=== PATIENT | male | born 1965 | race Caucasian/White ===

== ENCOUNTER 2024-05-19 08:31 | Outpatient (AMB) | payer OTHER, SELFPAY ==
--- NOTE | 2024-05-19 08:49 | A.OFFVIS_ITS ---
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 Pt states he had a TKA in 2021 by an orthopedic surgeon in [place] and since then he states it has not felt right. Pt states he has constant numbness in his right foot. Pt states when he bends his leg it is very painful. Pt denies any injury after his TKA. Pt states he tried PT again about 3 months ago but he states it still didnt help much. He has been seen for a ?disc problem? in his low back by Dr. Sandoval Henley. He has not had an injection in his low back. Allergies No Known Allergies Allergy (Verified 05/19/24 08:54) Medication List - Last Reconciled 05/19/24 by Clemente Ernandez MD apixaban (Eliquis) 5 mg PO BID indapamide 2.5 mg PO DAILY lisinopril 40 mg PO DAILY COUNTS INCLUDE 234 BEDS AT THE [facility] Surgical History (Updated 05/19/24 @ 08:57 by Mai Ballesteros [facility]) History of total knee arthroplasty (~2021) Physical Exam Const Other: Well-nourished well-developed very friendly male awake alert and oriented x3 in no acute distress Extrem Other: Right knee examination shows that the surgical incision is well healed, no erythema, full active extension and flexion to 115 degrees, his patella tracks well Results Reviewed Results Reviewed: X-rays of the patient's right knee taken today show a total knee arthroplasty in good position with no signs of loosening, no acute bony abnormalities Assessment & Plan Assessment & Plan (1) Right knee pain: Code(s): M25.561 - Pain in right knee Category: Medical Plan Mr. Garnica presents with continued pain in his right knee after undergoing right total knee replacement surgery by [facility] in 2021. I had a lengthy discussion with the patient regarding the treatment options. Some of his symptoms may be radiating from his lumbar spine pathology. The patient may be a candidate for a nerve block procedure to help with his discomfort. Thus, I will arrange for him to have a consultation with Dr. Quintana here in our pain management department. The patient will also follow up with Dr. Henley for possible lumbar spine cortisone injection. I will see the patient back following these appointments to further discuss his treatment options. Feel free to call me at any time should questions regarding his orthopedic management arise. Thank you very much for asking me to see this very friendly gentleman. I spent 22 minutes in reviewing the patient's records and imaging studies, seeing the patient and documenting in the medical record. Orders: Orders XR knee RT 3V Today M25.561 - Pain in right knee Referrals Pain Management Referral M25.561 - Pain in right knee Coding Level of Care Code New Pt Level 3 (21805) Diagnoses Right knee pain M25.561
== END 2024-05-19 09:14 | disposition home or self-care (01) ==
PROVIDERS: PCP Internal Medicine; Visit Provider Orthopaedic Surgery
DX: M25.561 Pain in right knee (principal); Z96.651 Presence of right artificial knee joint
CPT/HCPCS: 99203

== ENCOUNTER 2024-05-19 09:28 | Outpatient (REF) | payer OTHER, SELFPAY ==
--- NOTE | ~2024-05-19 | XR_ITS ---
EXAMINATION: XR KNEE, RIGHT CLINICAL INFORMATION: Right knee pain COMPARISON: None available. TECHNIQUE: Three views of the right knee. FINDINGS: The total knee arthroplasty components are in the usual position and alignment without evidence of loosening or fracture. There is a joint effusion. Soft tissue density overlying Hoffa's fat pad is nonspecific and may represent joint fluid. XR/XR knee RT 3V IMPRESSION: Total knee arthroplasty without evidence of complication. Joint effusion. Soft tissue density overlying Hoffa's fat pad is nonspecific and may represent joint fluid.
== END 2024-05-19 09:29 | disposition home or self-care (01) ==
LOC: HO.HOSX 09:28
PROVIDERS: Visit Provider Orthopaedic Surgery
DX: M25.561 Pain in right knee (principal)
CPT/HCPCS: 73562

== ENCOUNTER 2024-06-15 07:50 | Outpatient (AMB) | payer OTHER, SELFPAY ==
[2024-06-15 07:52] VITALS: BP 138/68; PULSE 66; RESP 14; O2SAT 96; BMI 30.8
--- NOTE | 2024-06-15 07:52 | MHC.OFFVIS ---
Vital Signs 06/15/24 07:52 Height 5 ft 10 in Weight 215 lb BMI 30.8 BP 138/68 Blood Pressure Location Lt brachial Position Sitting Respiration 14 Pulse 66 Pulse Source Pulse Oximeter Pulse Oximetry (%) 96 Oxygen Delivery Method Room Air Intake Visit Reasons: Right Knee Pain Allergies No Known Allergies Allergy (Verified 06/15/24 07:54) Medication List - Last Reconciled 06/15/24 by Ya Ramon LPN apixaban (Eliquis) 5 mg PO BID indapamide 2.5 mg PO DAILY lisinopril 40 mg PO DAILY omeprazole mg PO HPI HPI Right Knee Pain: Details: 58-year-old male who presents today to the office for an evaluation of right knee pain. He complains of right knee pain. He had right total knee replacement surgery by [facility] in 2021. He has constant numbness in his right foot. He reports warmth and swelling with tenderness to touch. He reports aggravation of the pain when he bends his leg. He denies any injury after his TKA. He tried physical therapy again about three months ago without any relief. He has been seen for a ?disc problem? in his low back by Dr. Sandoval Henley. He has not had an injection in his low back. He is currently on Eliquis for blood clots in his leg. He had pain in his back, which radiates down to his legs, and went to the emergency room in June 2023. He had an imaging, which showed blood clots in his leg, and was started on Eliquis. He has tried compression stockings in the past. [facility] Medical History (Updated 06/15/24 @ 09:33 by Michael Hardin) DVT (deep venous thrombosis) Venous insufficiency Right knee pain Hypertension Surgical History (Updated 05/19/24 @ 08:57 by Mai Ballesteros CMA) History of total knee arthroplasty (~2021) Review of Systems Const All systems reviewed & are unremarkable except as noted in HPI and below Physical Exam Vital Signs: Last Vital Signs Pulse 66 06/15/24 07:52 Resp 14 06/15/24 07:52 BP 138/68 06/15/24 07:52 Pulse Ox 96 06/15/24 07:52 Oxygen Delivery Method Room Air 06/15/24 07:52 BMI result Body Mass Index 30.8 General: Appears afebrile. Alert and oriented. Mood and affect appropriate. Follows and participates in conversation appropriately. Respiratory effort is unlabored. Able to transition from sit to stand unassisted. Ambulates with bilaterally normal heel strike and toe off. A well-healed scar in the midline region of the right knee. No particular tenderness on palpation. The knee is warm to touch compared to the left side. It is swollen on inspection. 1+ edema on the right leg up to the mid-[place] region. Results Reviewed Results Reviewed: 05/19/24: XR KNEE, RIGHT FINDINGS: The total knee arthroplasty components are in the usual position and alignment without evidence of loosening or fracture. There is a joint effusion. Soft tissue density overlying Hoffa's fat pad is nonspecific and may represent joint fluid. IMPRESSION: Total knee arthroplasty without evidence of complication. Joint effusion. Soft tissue density overlying Hoffa's fat pad is nonspecific and may represent joint fluid. Assessment & Plan Assessment & Plan (1) Right knee pain: Code(s): M25.561 - Pain in right knee Category: Medical (2) Venous insufficiency: Code(s): I87.2 - Venous insufficiency (chronic) (peripheral) Category: Medical Plan 58-year-old male with leg swelling and knee pain worse since his knee replacement surgery. His leg swelling appears to be secondary to a combination of post-arthroplasty swelling as well as venous insufficiency, which he has had for a long time. Past history is notable for a DVT for which he is on Eliquis. Ordered an US of the leg (venous reflux study) for him to see if he would be a candidate for a kind of venous ablation therapy to help with the venous reflux component in the right knee pain. I also discussed temporary peripheral nerve stimulator vs. lumbar sympathetic blocks vs. permanent peripheral nerve stimulator devices as a possible treatment option. He is willing to proceed given significant discomfort that is affecting his quality of life and ADLs. We will proceed with the right saphenous nerve temporary stimulator placement. Discussed the risks and benefits of the procedure with the patient in detail. All questions were answered. The patient is on board with the plan. A device brochure was provided to the patient. Informed the patient that insurance approval is required. We will file a PA for approval and keep him updated. If this is not helpful, we can consider permanent peripheral nerve stimulator or lumbar sympathetic blocks in the future. Justification for interventional therapy: ? Patient with average pain > 6/10 ? Patient has exhausted conservative therapy ? Patient unable to tolerate physical therapy due to pain. . Patient has a good understanding of their pain condition and has appropriate mental and social support Scribed for Dr. Quintana by Michael Hardin, medical fee clerk, on 06/15/2024. I, Dr. Quintana, have personally reviewed and agree with the information entered by the scribe. Orders: Orders US venous duplex [facility] 06/15/24 I87.2 - Venous insufficiency (chronic) (peripheral) Coding Level of Care Code New Pt Level 4 (14524) Diagnoses Right knee pain M25.561 Venous insufficiency I87.2
== END 2024-06-15 09:01 | disposition home or self-care (01) ==
LOC: HO.PMC 07:50
PROVIDERS: PCP Internal Medicine; Visit Provider Internal Medicine
DX: M25.561 Pain in right knee (principal); I87.2 Venous insufficiency (chronic) (peripheral)
CPT/HCPCS: 99204

== ENCOUNTER → 2024-06-15 07:50 | Outpatient (BNVA) | payer OTHER, SELFPAY | PROVIDERS: PCP Internal Medicine; Visit Provider Internal Medicine ==

== ENCOUNTER 2024-07-08 09:09 | Outpatient (AMB) | payer OTHER, SELFPAY ==
[2024-07-08 09:19] VITALS: BP 138/74; PULSE 63; RESP 14; O2SAT 94; BMI 30.8
--- NOTE | 2024-07-08 09:19 | A.OFFVIS_ITS ---
Vital Signs 07/08/24 09:19 Height 5 ft 10 in Weight 215 lb BMI 30.8 BP 138/74 Blood Pressure Location Lt brachial Position Sitting Respiration 14 Pulse 63 Pulse Source Pulse Oximeter Pulse Oximetry (%) 94 Oxygen Delivery Method Room Air Intake Visit Reasons: left knee inj Allergies No Known Allergies Allergy (Verified 07/08/24 09:20) Medication List - Last Reconciled 07/08/24 by Ya Ramon LPN apixaban (Eliquis) 5 mg PO BID indapamide 2.5 mg PO DAILY lisinopril 40 mg PO DAILY omeprazole mg PO HPI HPI left knee inj: Details: 58-year-old male who presents today to the office for left knee aspiration. He is interested in receiving a cortisone shot to the left knee. Denies any recent cough, cold, infection, fever or other significant changes in medical history since last office visit. [facility] Medical History (Updated 07/14/24 @ 12:[address] Quintana MD) DVT (deep venous thrombosis) Venous insufficiency Right knee pain Hypertension Surgical History (Updated 05/19/24 @ 08:57 by Mai Ballesteros CMA) History of total knee arthroplasty (~2021) Physical Exam Vital Signs: Last Vital Signs Pulse 63 07/08/24 09:19 Resp 14 07/08/24 09:19 BP 138/74 07/08/24 09:19 Pulse Ox 94 07/08/24 09:19 Oxygen Delivery Method Room Air 07/08/24 09:19 BMI result Body Mass Index 30.8 General: Appears afebrile. Alert and oriented. Mood and affect appropriate. Follows and participates in conversation appropriately. Respiratory effort is unlabored. Able to transition from sit to stand unassisted. Ambulates with bilaterally normal heel strike and toe off. Office Procedures Joint Injection/Aspiration Joint Injection/Aspiration Details: Left knee aspiration and injection, ultrasound-guided After obtaining written consent, pre-procedure blood pressure and heart rate were stable and recorded in the nursing record. The patient was placed in the supine position and the patient identification and site was confirmed. The target area was widely prepped with chloraprep, allowed to dry. Ultrasound guidance was utilized to visualize the?fluid collection at the suprapatellar bursa of the left knee capsule. An 18-gauge needle was advanced under ultrasound guidance to the suprapatellar bursa. 25 mL of clear synovial fluid was aspirated. Following aspiration, 10 ml of triamcinolone 40 mg mixed with normal saline was injected on the left side at the suprapatellar bursa for intra- articular spread. The needles were removed, skin cleansed and a sterile bandage was applied. The patient tolerated the procedure well and no complications were encountered. Following the procedure the patient's vital signs and knee strength were stable. The patient was discharged home in good condition with post- procedural instructions. Time Out: Immediately prior to the procedure, the following was verbally confirmed that there is a signed consent form and that the correct patient, planned procedure, site and side are consistent with documentation and that necessary equipment and/or blood products are available prior to the start of the case. An ultrasound image of the injection was taken and stored in the permanent record. Coding - Large joint Procedure code (CPT) selection complete Assessment & Plan Assessment & Plan (1) Left knee pain: Code(s): M25.562 - Pain in left knee Category: Medical Plan Patient is status post left knee aspiration and injection with triamcinolone. Patient tolerated procedure well and was discharged home in stable condition with discharge instructions. All questions were answered. We will follow-up in two weeks via telephone or in clinic to assess response to therapy. A follow-up appointment was made during today's visit. Scribed for Dr. Quintana by Anat senior medical billing specialist, on 07/08/2024. I, Dr. Quintana, have personally reviewed and agree with the information entered by the scribe. Coding Level of Care Code Est Pt Level 3 (15457) Diagnoses Left knee pain M25.562 CPT Codes Coding - 03890 Large joint: 95729 - Large joint ([id number])
== END 2024-07-08 09:46 | disposition home or self-care (01) ==
PROVIDERS: PCP Internal Medicine; Visit Provider Internal Medicine
DX: M25.562 Pain in left knee (principal)
CPT/HCPCS: 20611

== ENCOUNTER → 2024-07-08 09:09 | Outpatient (BNVA) | payer OTHER, SELFPAY | PROVIDERS: PCP Internal Medicine; Visit Provider Internal Medicine | DX: M25.562 Pain in left knee (principal) | CPT/HCPCS: 20611; J2795; J3301 ==

== ENCOUNTER 2024-07-14 08:06 | Outpatient (REF) | payer OTHER, SELFPAY ==
--- NOTE | ~2024-07-14 | US_ITS ---
EXAMINATION: US LOWER EXTREMITY VENOUS (REFLUX EXAM), BILATERAL CLINICAL INDICATION: Chronic venous insufficiency with lower extremity varicose veins and inflammation COMPARISON: None. TECHNIQUE: Color flow triplex imaging and compression Doppler was performed to evaluate both the deep and the superficial systems bilaterally. To evaluate the superficial system, the examination was performed in the upright position. Color-flow Doppler ultrasound and compression ultrasound were utilized. In addition, maneuvers were utilized to demonstrate reflux. FINDINGS: 1. DEEP VENOUS ULTRASOUND OF THE RIGHT LOWER EXTREMITY: Common Femoral Vein: Compressible, normal respiratory variation and augmented flow. Femoral Vein: Compressible, normal color flow and augmentation. Popliteal Vein: Compressible, normal augmentation. Deep Reflux: Deep venous reflux seen within the common femoral vein, superficial femoral vein and popliteal vein ranging from 1512 ms to 2328 ms There is no evidence of a Guillen's cyst. 2. SUPERFICIAL ULTRASOUND WITH DOPPLER OF RIGHT LOWER EXTREMITY: GREAT SAPHENOUS VEIN: Saphenofemoral Junction: 1.1 cm; Reflux: 884 ms Proximal Thigh: 0.8 cm; Reflux: 2396 ms Mid Thigh: 0.6 cm; Reflux: 0 ms Above Knee: 0.6 cm; Reflux: 0 ms At Knee: 0.5 cm; Reflux: 0 ms Below Knee: 0.5 cm; Reflux: 0 ms Mid Calf: 0.4 cm; Reflux: 0 ms Ankle: 0.3 cm; Reflux: 2264 ms DUPLICATED MEDIAL GREAT SAPHENOUS VEIN: Diameter: 0.2 cm Reflux: None DUPLICATED LATERAL GREAT SAPHENOUS VEIN: Diameter: None imaged Reflux: NA SMALL SAPHENOUS VEIN: Saphenopopliteal Junction: 0.2 cm; Reflux: 0 ms Proximal: 0.2 cm; Reflux: 0 ms Distal: 0.1 cm; Reflux: 0 ms VEIN OF GIACOMINI: Size: NA Reflux: NA PERFORATORS: Location: Midcalf Size: 0.6 cm Reflux: 1312 ms VARICOSITIES: Location: Medial distal thigh, knee and throughout the calf off the great saphenous vein Size: 0.3 to 0.7 cm Reflux: 1324 - 1848 ms 3. DEEP VENOUS ULTRASOUND OF THE LEFT LOWER EXTREMITY: Common Femoral Vein: Compressible, normal respiratory variation and augmented flow. Femoral Vein: Compressible, normal color flow and augmentation. Popliteal Vein: Compressible, normal augmentation. Deep Reflux: Deep venous reflux in the popliteal vein measuring 1512 ms There is no evidence of a Guillen's cyst. 4. SUPERFICIAL ULTRASOUND WITH DOPPLER OF LEFT LOWER EXTREMITY: GREAT SAPHENOUS VEIN: Saphenofemoral Junction: 0.8 cm; Reflux: 0 ms Proximal Thigh: 0.3 cm; Reflux: 2856 ms Mid Thigh: 0.3 cm; Reflux: 2560 ms Above Knee: 0.3 cm; Reflux: 1356 ms At Knee: 0.4 cm; Reflux: 0 ms Below Knee: 0.3 cm; Reflux: 0 ms Mid Calf: 0.3 cm; Reflux: 2540 ms Ankle: 0.2 cm; Reflux: 2428 ms DUPLICATED MEDIAL GREAT SAPHENOUS VEIN: Diameter: None imaged Reflux: NA DUPLICATED LATERAL GREAT SAPHENOUS VEIN: Diameter: 0.2 cm Reflux: None SMALL SAPHENOUS VEIN: Saphenopopliteal Junction: 0.1 cm; Reflux: 0 ms Proximal: 0.1 cm; Reflux: 0 ms Distal: 0.1 cm; Reflux: 0 ms VEIN OF GIACOMINI: Size: NA Reflux: NA PERFORATORS: Location: None significant Size: NA Reflux: NA VARICOSITIES: Location: Proximal thigh, knee and mid calf off the great saphenous vein Size: 0.2 to 0.5 cm Reflux: Ranging from 748 ms to 2440 ms US/US venous duplex LE BI IMPRESSION: 1. Right: Significant venous insufficiency and reflux within the great saphenous vein with associated varicosities as described above. 2. Left: Significant venous insufficiency and reflux within the great saphenous vein with associated varicosities as described above. 3. Deep venous reflux in the right lower extremity as described above. Deep venous reflux in the left lower extremity as described above. Electronically signed by: Trenton Yates MD 07/17/2024 02:18 PM EDT
== END 2024-07-14 08:07 | disposition home or self-care (01) ==
LOC: HO.US 08:06
PROVIDERS: PCP Internal Medicine; Visit Provider Internal Medicine
DX: I87.2 Venous insufficiency (chronic) (peripheral) (principal)
CPT/HCPCS: 93970

== ENCOUNTER 2024-08-21 09:10 | Outpatient (AMB) | payer OTHER, SELFPAY ==
--- NOTE | 2024-08-21 09:02 | A.OFFVIS_ITS ---
Intake Visit Reasons: Ultra Sound Allergies No Known Allergies Allergy (Verified 07/08/24 09:20) HPI HPI Ultra Sound: Details: 59-year-old male who presents via tele-visit for review of the ultrasound result. The patient reports resolution of his knee pain following the knee injection. He has some soreness and stiffness in his right knee when climbing stairs. He states that his left knee is pain is stable. He states that his pain is more localized to the knee region. He states that his leg pain was secondary to the back pain. He reports swelling in his leg. The PA for the stimulator device was denied by the insurance company. He has not tried TENS units in the past. He has a scheduled appointment with vascular surgeon on 11/03/2024. Past procedures 07/08/24: Left knee aspiration and injection, ultrasound-guided: 100 % relief. [facility] Medical History (Updated 07/14/24 @ 12:[address] Quintana MD) DVT (deep venous thrombosis) Venous insufficiency Right knee pain Hypertension Surgical History (Updated 05/19/24 @ 08:57 by Mai Ballesteros CMA) History of total knee arthroplasty (~2021) Review of Systems Const All systems reviewed & are unremarkable except as noted in HPI and below Telehealth Telehealth Telehealth Platform: [employer] Location of provider rendering services: practice address Location of patient: address on file Patient Identification confirmed using: Name, : Yes Telehealth method: video Patient verbally consented to treatment: Yes Patient verbally consented to billing insurance company: Yes Patient informed of any privacy concerns related to visit: Yes Minutes spent on Phone/Video with Pt.: 11 Results Reviewed Results Reviewed: 07/14/24: US LOWER EXTREMITY VENOUS (REFLUX EXAM), BILATERAL. FINDINGS: 1. DEEP VENOUS ULTRASOUND OF THE RIGHT LOWER EXTREMITY: Common Femoral Vein: Compressible, normal respiratory variation and augmented flow. Femoral Vein: Compressible, normal color flow and augmentation. Popliteal Vein: Compressible, normal augmentation. Deep Reflux: Deep venous reflux seen within the common femoral vein, superficial femoral vein and popliteal vein ranging from 1512 ms to 2328 ms There is no evidence of a Guillen's cyst. 2. SUPERFICIAL ULTRASOUND WITH DOPPLER OF RIGHT LOWER EXTREMITY: GREAT SAPHENOUS VEIN: Saphenofemoral Junction: 1.1 cm; Reflux: 884 ms Proximal Thigh: 0.8 cm; Reflux: 2396 ms Mid Thigh: 0.6 cm; Reflux: 0 ms Above Knee: 0.6 cm; Reflux: 0 ms At Knee: 0.5 cm; Reflux: 0 ms Below Knee: 0.5 cm; Reflux: 0 ms Mid Calf: 0.4 cm; Reflux: 0 ms Ankle: 0.3 cm; Reflux: 2264 ms DUPLICATED MEDIAL GREAT SAPHENOUS VEIN: Diameter: 0.2 cm Reflux: None DUPLICATED LATERAL GREAT SAPHENOUS VEIN: Diameter: None imaged Reflux: NA SMALL SAPHENOUS VEIN: Saphenopopliteal Junction: 0.2 cm; Reflux: 0 ms Proximal: 0.2 cm; Reflux: 0 ms Distal: 0.1 cm; Reflux: 0 ms VEIN OF GIACOMINI: Size: NA Reflux: NA PERFORATORS: Location: [place]calf Size: 0.6 cm Reflux: 1312 ms VARICOSITIES: Location: Medial distal thigh, knee and throughout the calf off the great saphenous vein Size: 0.3 to 0.7 cm Reflux: 1324 - 1848 ms 3. DEEP VENOUS ULTRASOUND OF THE LEFT LOWER EXTREMITY: Common Femoral Vein: Compressible, normal respiratory variation and augmented flow. Femoral Vein: Compressible, normal color flow and augmentation. Popliteal Vein: Compressible, normal augmentation. Deep Reflux: Deep venous reflux in the popliteal vein measuring 1512 ms There is no evidence of a Guillen's cyst. 4. SUPERFICIAL ULTRASOUND WITH DOPPLER OF LEFT LOWER EXTREMITY: GREAT SAPHENOUS VEIN: Saphenofemoral Junction: 0.8 cm; Reflux: 0 ms Proximal Thigh: 0.3 cm; Reflux: 2856 ms Mid Thigh: 0.3 cm; Reflux: 2560 ms Above Knee: 0.3 cm; Reflux: 1356 ms At Knee: 0.4 cm; Reflux: 0 ms Below Knee: 0.3 cm; Reflux: 0 ms Mid Calf: 0.3 cm; Reflux: 2540 ms Ankle: 0.2 cm; Reflux: 2428 ms DUPLICATED MEDIAL GREAT SAPHENOUS VEIN: Diameter: None imaged Reflux: NA DUPLICATED LATERAL GREAT SAPHENOUS VEIN: Diameter: 0.2 cm Reflux: None SMALL SAPHENOUS VEIN: Saphenopopliteal Junction: 0.1 cm; Reflux: 0 ms Proximal: 0.1 cm; Reflux: 0 ms Distal: 0.1 cm; Reflux: 0 ms VEIN OF GIACOMINI: Size: NA Reflux: NA PERFORATORS: Location: None significant Size: NA Reflux: NA VARICOSITIES: Location: Proximal thigh, knee and mid calf off the great saphenous vein Size: 0.2 to 0.5 cm Reflux: Ranging from 748 ms to 2440 ms IMPRESSION: 1. Right: Significant venous insufficiency and reflux within the great saphenous vein with associated varicosities as described above. 2. Left: Significant venous insufficiency and reflux within the great saphenous vein with associated varicosities as described above. 3. Deep venous reflux in the right lower extremity as described above. Deep venous reflux in the left lower extremity as described above. Assessment & Plan Assessment & Plan (1) Left knee pain: Code(s): M25.562 - Pain in left knee Category: Medical (2) Venous insufficiency: Code(s): I87.2 - Venous insufficiency (chronic) (peripheral) Category: Medical Plan Unfortunately, our request for PNS devices for the right knee pain was denied. So, I recommended he try TENS units and see if that makes a difference. I also encouraged him to follow up with vascular surgery to see if addressing his venous insufficiency would help with his right leg pain. His left knee is doing well at this time, and he will follow up as needed for that. Scribed for Dr. Quintana by Michael Hardin, medical insurance claims processor, on 08/21/2024. I, Dr. Quintana, have personally reviewed and agree with the information entered by the scribe. Coding Level of Care Code Tele Est Pt Level 3 (95357) Diagnoses Left knee pain M25.562 Venous insufficiency I87.2
== END 2024-08-21 09:11 | disposition home or self-care (01) ==
LOC: HO.PMC 09:10
PROVIDERS: PCP Internal Medicine; Visit Provider Internal Medicine
DX: M25.562 Pain in left knee (principal); I87.2 Venous insufficiency (chronic) (peripheral)
CPT/HCPCS: 99213

== ENCOUNTER → 2024-08-21 09:10 | Outpatient (BNVA) | payer OTHER, SELFPAY | PROVIDERS: PCP Internal Medicine; Visit Provider Internal Medicine ==

== ENCOUNTER 2024-11-03 15:09 | Outpatient (AMB) | payer OTHER, SELFPAY ==
--- OUTSIDE RECORDS SUMMARY | 2024-11-03 15:11 | XMS_ITS | Continuity of Care Document ---
Author Organization [facility] Address [address] [place] [address]- Care Team Providers Care Certified Welder Name Role Phone Josr Medrano MD Primary Care Physician En[place] [facility] [place](s): 10/19/24 - 10/26/24 [facility] [address] [place], [place] [address] Encounter Diagnosis Deep vein thrombosis (DVT) of right lower extremity(Discharge Diagnosis) - 10/19/24 History of total right knee replacement(Discharge Diagnosis) - 10/19/24 Hypercoagulable state, primary(Discharge Diagnosis) - 10/19/24 Serous cystadenoma(Discharge Diagnosis) - 10/19/24 Attending Physician: Josr Medrano MD Encounter Type: Office Visit Allergies, Adverse Reactions, Alerts No Known Allergies Immunizations Given and Recorded Vaccine Date Status Refusal Reason influenza virus vaccine, inactivated 09/04/24 Javier rded influenza virus vaccine, inactivated 10/08/23 Give n influenza virus vaccine, inactivated 1 09/21/22 Gi kobi influenza virus vaccine, inactivated 2 09/18/21 Gi kobi influenza virus vaccine, inactivated 08/28/20 Javier rded influenza virus vaccine, inactivated 3 08/27/19 Gi kobi influenza virus vaccine, inactivated 08/20/18 Give n influenza virus vaccine, inactivated 4 08/15/17 Gi kobi influenza virus vaccine, inactivated 5 09/06/10 Gi kobi SARS-CoV-2(COVID-19)mRNA-LNP vac([id number]) 08/21/24 Recorded SARS-CoV-2 mRNA ([id number]) vax 09/21/23 Recorded SARS-CoV-2 mRNA ([id number]-nrbby) vax 10/27/22 Recorded Zoster Vaccine Live 6 12/31/22 Recorded Zoster Vaccine Live 10/27/22 Recorded SARS-CoV-2 (COVID-19) mRNA-1273 vaccine 10/13/21 R ecorded SARS-CoV-2 (COVID-19) mRNA-1273 vaccine 12/30/20 R ecorded SARS-CoV-2 (COVID-19) mRNA-1273 vaccine 12/02/20 R ecorded tetanus/diphtheria/pertussis, acel(Tdap) 06/25/13 Given tetanus-diphtheria toxoids (Td) 02/08/04 Given 1Result Comment: [id number] given w/out incident 2Result Comment: [id number] 3Result Comment: [id number] 4Result Comment: [08/15/2017] [facility] [id number] 5Admin Note: in [place] 6Result Comment: [facility] Medications acetaminophen 325 mg oral tablet 650 mg, By Mouth, Every 6 hours, may take OTC not to exceed 4000 mg/day, Refills 0, Maintenance, 08/24/22 2:45:00 PM EDT, Partial fill upon patient request if the prescription is for a schedule II opioid drug. Start Date: 08/24/22 Status: Ordered Repeat number: 1 Amoxicillin 500 mg, By Mouth, Maintenance, given 1 hour prior to the procedure, 09/01/23 11:47:00 PM EDT Start Date: 09/01/23 Status: Ordered Repeat number: 1 Eliquis 5 mg oral tablet 1 tablet, By Mouth, 2 times a day, # 60 tablet, 11 Refills, Maintenance, 01/17/24 10:36:00 AM EST, [id number], 177, cm, 10/15/23 10:00:00 EST, Height, 102, kg, 10/15/23 10:00:00 EST, Dry Weight Start Date: 01/17/24 Status: Ordered Quantity: 60.0 Unit: tablet Repeat number: 1 indapamide 2.5 mg oral tablet 1 tablet, By Mouth, Daily in AM, # 90 tablet, 3 Refills, Maintenance, 10/16/24 9:14:00 AM EST, [id number], 177, cm, 03/16/24 7:44:00 EDT, Height, 102, kg, 10/15/23 10:00:00 EST, Dry Weight Start Date: 10/16/24 Status: Ordered Quantity: 90.0 Unit: tablet Repeat number: 1 lisinopril 40 mg oral tablet 1 tablet, By Mouth, Daily, # 90 tablet, 1 Refills, Maintenance, 10/20/24 10:07:00 AM EST, [id number], 177, cm, 10/19/24 8:30:00 EST, Height, 101, kg, 10/19/24 8:30:00 EST, Dry Weight Start Date: 10/20/24 Status: Ordered Quantity: 90.0 Unit: tablet Repeat number: 2 omeprazole 40 mg oral enteric coated capsule 1 capsule, By Mouth, Every other day, # 45 capsule, 3 Refills, Maintenance, 03/05/24 11:27:00 AM EDT, [facility][id number], 177, cm, 10/15/23 10:00:00 EST, Height, 102, kg, 10/15/23 10:00:00 EST, Dry Weight Start Date: 03/05/24 Status: Ordered Quantity: 45.0 Unit: capsule Repeat number: 4 Problem List Condition Confirmation Course Effective Dates Status H ealt Status Informant Serous cystadenoma Confirmed Active Osteoarthritis of both knees Confirmed Active Deep vein thrombosis (DVT) of right lower extremity Confirmed Active On continuous oral anticoagulation Confirmed Active Family history of cardiovascular disease Confirmed Active Fracture dislocation of right ankle joint Confirmed Active Hospitalization within last 30 days Confirmed Active History of total right knee replacement Confirmed Active Hypercoagulable state, primary Confirmed Active Hypertension Confirmed Active Hypertension Confirmed Active Intercostal neuralgia Confirmed Active Macrocytic anemia Confirmed Active Obese class I Confirmed Active Obese class I Confirmed Active Sleep apnea Confirmed Active DVT of lower extremity (deep venous thrombosis) Confirmed Active Diagnosis Diagnosis Type Effective Dates Health Status Clinical Service Informant Deep vein thrombosis (DVT) of right lower extremity Discharge Diagnosis 10/19/24 History of total right knee replacement Discharge Diagnosis 10/19/24 Hypercoagulable state, primary Discharge Diagnosis 10/19/24 Serous cystadenoma Discharge Diagnosis 10/19/24 Vital Signs Most recent to oldest [Reference Range]: 1 Height 177 cm (10/19/24 8:30 AM) Weight 101 kg (10/19/24 8:30 AM) Oxygen Saturation [94-100 %] 93 % *L* (10/19/24 8:30 AM) Pulse Rate [55-90 bpm] 67 bpm (10/19/24 8:30 AM) Body Mass Index [18.5-24.99 kg/m2] 32.24 kg/m2 *>HHI* (10/19/24 8:30 AM) Blood Pressure [90-138/55-84 mm Hg] 134/ 72mm Hg (10/19/24 8:30 AM) Mode of Delivery (Oxygen) Room air (10/19/24 8:30 AM) Blood pressure sites Arm, left (10/19/24 8:30 AM) Dry Weight 101 kg (10/19/24 8:30 AM) Weight Obtained Via Standing scale (10/19/24 8:30 AM) Dry Weight Obtained Via Standing scale (10/19/24 8:30 AM) Social History Social History Type Response Smoking Status Never (less than 100 in lifetime) entered on: 09/02/23 Sex Sex Representation Male (finding) Note * Riana Melvin: PERFORM Event Display: Patient Education/Instruction Authored Date: Ambulatory Adult Visit Summary [facility] [address] [place] [address] Name: SHANE KNIGHT : 1965?? Visit: 10/19/2024 08:14?? Ambulatory Visit Instructions ?? Your Care Team Primary Care Provider Josr Medrano MD? This Visit Provider Josr Medrano MD Your Diagnosis Routine general medical examination at health care facility Hypertension Vitals Signs Pulse Rate: 67 bpm Height: 177 cm Systolic Blood Pressure: 134 mm Hg Weight: 101 kg Diastolic Blood Pressure: 72 mm Hg Body Mass Index:??32.24 kg/m2??Critical Oxygen Saturation:??93 %??Low Body surface area: 2.23 What to do next Follow-Up Appointments Follow Up with??Josr Medrano MD When:??10/28/2025 08:40 AM EST Where: [address] [place] [address]- Follow Up with??[facility] [place] [facility] [address] [place], [place] Future Orders CBC w/ Differential - Routine, Once, 10/19/24 8:57:00 EST, Future Order, [facility], Blood?? Comprehensive Metabolic Panel - Routine, Once, 10/19/24 8:57:00 EST, Future Order, [facility], Blood?? Cholesterol Total - Routine, Once, 10/19/24 8:57:00 EST, Future Order, [facility], Blood?? Direct LDL - Routine, Once, 10/19/24 8:57:00 EST, Future Order, [facility], Blood?? PSA Screen - Routine, Once, 10/19/24 8:57:00 EST, Future Order, [facility], Blood?? Medications The list below reflects the information in our records and provided by you today along with any changes made during this visit. Please continue your medications until treatment is completed or stopped by your provider. If this is different from the information you have or there are other questions,please contact the prescribing provider. What How Much When Instructions Unchanged Acetaminophen (acetaminophen 325 mg oral tablet) 650 Milligram Oral Every 6 hours may take OTC not to exceed 4000 mg/ day ?? Unchanged Amoxicillin 500 Milligram Oral given 1 hour prior to the procedure ?? Unchanged apixaban (Eliquis 5 mg oral tablet) 1 tab(s) Oral Twice a day Unchanged Indapamide (indapamide 2.5 mg oral tablet) 1 tab(s) Oral Daily in the morning Unchanged Lisinopril (lisinopril 40 mg oral tablet) 1 tab(s) Oral Daily Unchanged Omeprazole (omeprazole 40 mg oral enteric coated capsule) 1 capsule Oral Every other day Test Performed Below is a partial list of the tests performed during your Visit. You may have had other tests and procedures not included in this list. Please discuss all test results with your provider. CBC w/ Differential?-- Results Pending -- Cholesterol Total?-- Results Pending -- Comprehensive Metabolic Panel?-- Results Pending -- Direct LDL?-- Results Pending -- PSA Screen?-- Results Pending -- Medications and Immunizations Administered Medications Given During Visit No medications given during this visit.?? Allergies (NKA means No Known Allergies) NKA Common Emergency Awareness Tips IS IT A STROKE? Act FAST and Check for these signs: FACE Does the face look uneven? ARM Does one arm drift down? SPEECH Does their speech sound strange? TIME Call at any sign of stroke ?? Heart Attack Signs Chest discomfort: Most heart attacks involve discomfort in the center of the chest and lasts more than a few minutes, or goes away and comes back. It can feel like uncomfortable pressure, squeezing, fullness or pain. Discomfort in upper body: Symptoms can include pain or discomfort in one or both arms, back, neck, jaw or stomach. Shortness of breath: With or without discomfort. Other signs: Breaking out in a cold sweat, nausea, or lightheaded. Remember, MINUTES DO MATTER. If you experience any of these heart attack warning signs, call to get immediate medical attention! ?? Smoking can increase your chances of developing chronic health problems and can cause harmful effects to other family members in your house. If you smoke, you are strongly encouraged to quit. Please call [facility] Link at [phone] or [phone] ([phone]) or log in to [email or web address] for referrals to smoking cessation programs. ?? The National Suicide Prevention Hotline is available 10/06 if you or someone you know needs to find a reason to keep living. By calling 0-816-616-Tubis (3359) you'll be connected to a skilled, trained counselor at a crisis center in your area. [facility] Portal You can view and manage your care through the patient portal or by using a health care lenka of your choosing. [employer] is a website that allows you to securely view your medical information including your hospital discharge summary, office visit summaries, medications and follow-up visits. You can also request appointments, renew medications, and request access to your medical information using a health care lenka of your choosing, or just ask a question. You can enroll at [email or web address] or register during your next office visit. [facility], in keeping with [facility] guidance, no longer requires face masks for staff, patientsor visitors in most situations. Similiar to time spent indoors at other locations, there is the chance that you were exposed to repiratory viruses during your time with us (such as flu or COVID-19). If you develop symptoms concerning for a viral respiratory infection, please seek testing (and treatment if indicated) from your medical provider or home test kit. ?? Disclaimer: The information provided is of a general nature and is intended to be used in conjunction with the recommendations and advice of your health care practitioner. Every effort has been made to ensure that the information provided is accurate and complete at the time it is provided to you however, as your needs change, or, as new information becomes available, different or additional instructions may be required. ?? If you have questions, please consult with your primary care provider or pharmacist, as appropriate. This information is not intended to serve as substitution for assessment and evaluation by a qualified health care provider. If you do not have a primary care provider, you may find a [facility] provider by calling [facility] at [phone]. Patient Care team information Care Team Personnel Name: Josr Medrano MD Position: [facility] Physician - Primary Care Member Role: PCP Address: [address] [place] [address] [facility] [place] [id number] Telecom: Name: Keena Vo RN Position: S RN Member Role: Primary Care Nurse Name: Sherrie Green RN Position: [facility] RN Member Role: Primary Care Nurse Care Team Related Persons Name: VERONICA KNIGHT Name: LUCIANO KNIGHT Insurance Providers Guarantor name: SHANE NANVANESA Health Plan Information #: 1 Payer: [facility] Member Number: [id number] Policy Number: NA Group Number: [id number] Health Plan Information #: 2 Payer: [facility] Member Number: [id number] Policy Number: NA Group Number: [id number]
--- NOTE | 2024-11-03 15:14 | MHC.OFFVIS ---
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 Patient states he has swelling in the right leg that is on and off. 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 Complaints include pain over varicosities, swelling of lower extremities, cramping, fatigue, and heaviness of the lower extremities. It has been affecting there daily activities including walking. It is noted more so in right leg. Patient denies any previous venous surgery or injections. Patient does report 2 prior episodes of a DVT. One 8 years ago when he broken ankle in 1 2 years prior after a knee replacement Patient denies any history of phlebitis. Trial of compression includes - [id number] They now present for vascular evaluation regarding their varicose veins. [facility] Medical History DVT (deep venous thrombosis) Venous insufficiency Right knee pain Hypertension Surgical History History of total knee arthroplasty (~2021) Review of Systems Const Reports as per HPI ENT Reports no additional complaints Card Denies chest pain, Denies chest pain at rest and Denies chest pain with activity Resp Denies chest congestion and Denies cough GI Reports no additional complaints Musc Details: pain over varicosities, aching of lower extremities, swelling, cramping, heaviness and tiredness, itching Denies abnormal gait Skin/Breast Reports pruritus and Denies wounds Neuro Reports no additional complaints and Denies abnormal gait Psych Denies no additional complaints Physical Exam Const General: cooperative, healthy appearing and comfortable Orientation/consciousness: oriented to person, oriented to place and oriented to time Neck Carotids: no bruits Chest Chest palpation & inspection: normal inspection of the chest and normal palpation of entire chest wall Resp Effort & Inspection: normal respiratory effort and able to speak in complete sentences Cardio Rate: regular rate Heart sounds: S1 normal heart sound present and S2 normal heart sound present Peripheral pulses: Peripheral pulses 2+ throughout GI Inspection: Yes normal to inspection Skin Other: +2 edema, large rope-like varicosities greater than 4 mm CEAP Classification C4 - skin color changes Ep - Etiology Primary As - superficial veins P - reflux General skin exam: dry skin Neuro General: oriented to person, oriented to place and oriented to time Extrem Right lower extremity: full ROM, normal capillary refill and edema Left lower extremity: full ROM, normal capillary refill and edema Psych Mental Status: mental status grossly normal Results Reviewed Results Reviewed: Brief summary of venous insufficiency testing is as follows: right great saphenous vein: Positive right small saphenous vein: negative right accessory vein: none present left great saphenous vein: Positive left small saphenous vein: negative left accessory vein: none present Please note there is no evidence of any venous aneurysms or significant tortuosity Assessment & Plan Assessment & Plan (1) Varicose veins of right lower extremity with inflammation: Code(s): I83.11 - Varicose veins of right lower extremity with inflammation Category: Medical Plan: This patient has varicose veins with inflammation. They continue to be a source of discomfort for the patient. The patient has tried conservative treatment with compression, leg elevation and exercise program for over 3 months time. They have been compliant with all treatment. This has provided minimal relief for the patient. I do not anticipate this course of treatment will alter the underlying etiology. The patient has been scheduled for lower extremity venous treatment inclusive of --- right great saphenous vein Cyanoacralate ablation. Risks, benefits, and complications of this procedure has been discussed in detail with the patient including but not limited to bleeding, infection, and the development of a DVT. The patient has demonstrated a clear understanding and has consented. We will schedule the patient as soon as possible. Thank you for allowing us to participate in this patient's care. If there are any questions or concerns please do not hesitate to contact us. Coding Level of Care Code New Pt Level 4 (60478) Diagnoses Varicose veins of right lower extremity with inflammation I83.11
== END 2024-11-03 16:20 | disposition home or self-care (01) ==
PROVIDERS: PCP Internal Medicine; Visit Provider Surgery Vascular Surgery
DX: I83.11 Varicose veins of right lower extremity with inflammation (principal)
CPT/HCPCS: 99204

== ENCOUNTER 2024-12-25 12:04 | Outpatient (AMB) | payer OTHER, SELFPAY ==
--- NOTE | 2024-12-25 12:21 | A.OFFVIS_ITS ---
Intake Visit Reasons: Right GSV Venaseal Accompanied by: Self / Same As Patient Allergies No Known Allergies Allergy (Verified 12/25/24 12:22) [facility] Medical History DVT (deep venous thrombosis) Venous insufficiency Right knee pain Hypertension Surgical History History of total knee arthroplasty (~2021) Office Procedures Vascular Office Procedure Details Details: Diagnosis: Right Leg varicose veins with inflammation Procedure: Endovenous Ablation of the right Great Saphenous Vein with VenaSeal Closure System Anesthesia: Local infiltration 5 cc, Office Clerk: ADINA Quintero Estimated Blood Loss: min Specimen: none Duplex ultrasound was used to map out the insufficient saphenous vein, and access was determined and marked on the overlying skin. The depth and diameter of the vein(s) to be treated was documented. The patient was placed supine on the procedure table and the leg was prepped and draped using sterile technique. Ultasound guidance was again used to localize the access site. 1% lidocaine was injected as a local anesthetic in the subcutaneous tissues at the target location in the GSV in the lower leg. Using ultrasound guidance, access was gained at this location with the 19 gauge thin walled access needle and followed by introduction of a short guidewire, location confirmed with ultrasound. A small, 3 mm incision was made at the access site to allow for introduction and placement of the 7 Fr x7cm introducer/dilator. The dilator and guidewire were removed. The 0.035 guidewire from the VenaSeal kit was then introduced and positioned at the saphenofemoral junction using ultrasound guidance. The 80 cm 7 Fr introducer sheath/dilator was positioned 5cm from the saphenofemoral junction. The guidewire and dilator were removed, and the remaining sheath was flushed with sterile saline, with the syringe remaining in place prior to the next steps. The cyanoacrylate adhesive was precisely primed into the 5 F delivery catheter and this catheter/syringe combination was attached within the dispenser gun. This assembly was introduced through the 7F sheath and positioned 5 cm caudal of the saphenofemoral junction under ultrasound guidance. The steps from the IFU were followed for dispensing amounts, locations and compression times, 2 aliquots proximally with 3 minutes of compression, and 1 aliquot every 3 cm distally with 30 sec of compression along the course of the vessel. Following the last injection and compression sequence, the catheter and introducer sheath were pulled out from the access site. Hemostasis was achieved with manual compression and an adhesive bandage was applied to the incision. Ultrasound confirmed complete coaptation and closure of the treated segments of the GSV, and the absence of any DVT at the saphenofemoral junction. Treatment time was approximately 6 minutes and the vein length treated was 35 cm. The drapes were removed and the patient cleaned and prepared for discharge. Post op ultrasound check is scheduled for 48-72 hours and the patient was given written post-op instructions. 56121 - Endoven Ther Chem Adhes 1st All charges added?: Procedure code (CPT) selection complete Assessment & Plan Assessment & Plan (1) Varicose veins of right lower extremity with inflammation: Comment: 12/25/2024 - right great saphenous vein Cyanoacralate ablation Code(s): I83.11 - Varicose veins of right lower extremity with inflammation Category: Medical Plan: See op note Coding Level of Care Code Procedure Only Diagnoses Varicose veins of right lower extremity with inflammation I83.11 CPT Codes Details - Vascular 3: 54534 - Endoven Ther Chem Adhes 1st ([id number])
== END 2024-12-25 13:10 | disposition home or self-care (01) ==
PROVIDERS: PCP Internal Medicine; Visit Provider Surgery Vascular Surgery
DX: I83.11 Varicose veins of right lower extremity with inflammation (principal)
CPT/HCPCS: 36482

== ENCOUNTER → 2024-12-25 12:04 | Outpatient (BNVA) | payer OTHER, SELFPAY | PROVIDERS: PCP Internal Medicine; Visit Provider Surgery Vascular Surgery | DX: I83.11 Varicose veins of right lower extremity with inflammation (principal) | CPT/HCPCS: 36482; J2003 ==

== ENCOUNTER 2025-01-07 08:44 | Outpatient (AMB) | payer OTHER, SELFPAY ==
[2025-01-07 09:06] VITALS: BMI 30.8
--- NOTE | 2025-01-07 09:06 | MHC.OFFVIS ---
Vital Signs 01/07/25 09:06 Height 5 ft 10 in Weight 215 lb BMI 30.8 Intake Visit Reasons: 2 week follow up Right GSV Venaseal 12/25/24 Intake Note: 2 week follow up Right GSV Venaseal 12/25/24, Pt states leg feels fine, has not noticed decrease in swelling. Accompanied by: Self / Same As Patient Allergies No Known Allergies Allergy (Verified 01/07/25 09:09) HPI HPI 2 week follow up Right GSV Venaseal 12/25/24: Details: Very pleasant 59-year-old gentleman presents for follow-up status post right great saphenous vein ablation. Reports he is doing fairly well after the procedure. Overall swelling has decreased somewhat. He continues to wear stockings and doing fairly well with that. He now presents for routine follow-up postprocedure. [facility] Medical History DVT (deep venous thrombosis) Venous insufficiency Right knee pain Hypertension Surgical History History of total knee arthroplasty (~2021) Review of Systems Const Reports as per HPI ENT Reports no additional complaints Card Denies chest pain, Denies chest pain at rest and Denies chest pain with activity Resp Denies chest congestion and Denies cough GI Reports no additional complaints Musc Details: pain over varicosities, aching of lower extremities, swelling, cramping, heaviness and tiredness, itching Denies abnormal gait Skin/Breast Reports pruritus and Denies wounds Neuro Reports no additional complaints and Denies abnormal gait Psych Denies no additional complaints Physical Exam Vital Signs: BMI result Body Mass Index 30.8 Const General: cooperative, healthy appearing and comfortable Orientation/consciousness: oriented to person, oriented to place and oriented to time Neck Carotids: no bruits Chest Chest palpation & inspection: normal inspection of the chest and normal palpation of entire chest wall Resp Effort & Inspection: normal respiratory effort and able to speak in complete sentences Cardio Rate: regular rate Heart sounds: S1 normal heart sound present and S2 normal heart sound present Peripheral pulses: Peripheral pulses 2+ throughout GI Inspection: Yes normal to inspection Skin Other: +2 edema, CEAP Classification C4 - skin color changes Ep - Etiology Primary As - superficial veins P - reflux General skin exam: dry skin Neuro General: oriented to person, oriented to place and oriented to time Extrem Right lower extremity: full ROM, normal capillary refill and edema Left lower extremity: full ROM, normal capillary refill and edema Psych Mental Status: mental status grossly normal Results Reviewed Results Reviewed: Brief summary of venous insufficiency testing is as follows: right great saphenous vein: Ablated right small saphenous vein: negative right accessory vein: none present left great saphenous vein: Positive left small saphenous vein: negative left accessory vein: none present Please note there is no evidence of any venous aneurysms or significant tortuosity Assessment & Plan Assessment & Plan (1) Varicose veins of right lower extremity with inflammation: Comment: 12/25/2024 - right great saphenous vein Cyanoacralate ablation Code(s): I83.11 - Varicose veins of right lower extremity with inflammation Category: Medical Plan: In short patient has done extremely well status post right great saphenous vein ablation. At the current time he appears to be doing relatively well. He would like to conservatively manage the left lower extremity for right now. He will see what the overall status is and follow-up with us in approximately 3 months time. In the interim we did discuss routine conservative measures including compression elevation and exercise. Once again he will follow up with us in approximately 3 months time to consider left great saphenous vein ablation.. Thank you for allowing us to assist in his care. If there are any questions or concerns please do not hesitate to contact us. Coding Level of Care Code Est Pt Level 4 (28261) Diagnoses Varicose veins of right lower extremity with inflammation I83.11
--- OUTSIDE RECORDS SUMMARY | 2025-01-07 09:11 | XMS_ITS | Continuity of Care Document ---
Author Organization [facility] Address [address] [place] [address]- Care Team Providers Care [facility] Representative Name Role Phone Josr Medrano MD Primary Care Physician Encounter [facility] Date(s): 11/25/24 - 12/25/24 [facility] [address] [place], [place] [address] Encounter Type: Triage Allergies, Adverse Reactions, Alerts No Known Allergies [...] vaccine, inactivated 5 09/06/10 Gi kobi SARS-CoV-2(COVID-19)mRNA-LNP vac([id number]) 08/21/24 Recorded SARS-CoV-2 mRNA (rbxvkcq-wryz-dovtd) vax 09/21/23 Recorded SARS-CoV-2 mRNA (lwazdjx-klzj-zbixd) vax 10/27/22 Recorded Zoster Vaccine Live 6 12/31/22 Recorded Zoster Vaccine Live 10/27/22 Recorded SARS-CoV-2 (COVID-19) mRNA-1273 vaccine 10/13/21 R ecorded SARS-CoV-2 (COVID-19) mRNA-1273 vaccine 12/30/20 R ecorded SARS-CoV-2 (COVID-19) mRNA-1273 vaccine 12/02/20 R ecorded tetanus/diphtheria/pertussis, acel(Tdap) 06/25/13 Given tetanus-diphtheria toxoids (Td) 02/08/04 Given 1Result Comment: [id number] given w/out incident 2Result Comment: [id number] 3Result Comment: [id number] 4Result Comment: [08/15/2017] [facility] [place] [id number] 5Admin Note: in [place] 6Result Comment: [facility] [...] 11 Refills, Maintenance, 01/17/24 10:36:00 AM EST, [facility], 177, cm, 10/15/23 10:00:00 EST, Height, 102, kg, 10/15/23 10:00:00 EST, Dry Weight Start Date: 01/17/24 Status: Ordered Quantity: 60.0 Unit: tablet Repeat number: 1 indapamide 2.5 mg oral tablet 1 tablet, By Mouth, Daily in AM, # 90 tablet, 3 Refills, Maintenance, 10/16/24 9:14:00 AM EST, [facility]ORE 02740, 177, cm, 03/16/24 7:44:00 EDT, Height, 102, kg, 10/15/23 10:00:00 EST, Dry Weight Start Date: 10/16/24 Status: Ordered Quantity: 90.0 Unit: tablet Repeat number: 1 lisinopril 40 mg oral tablet 1 tablet, By Mouth, Daily, # 90 tablet, 1 Refills, Maintenance, 10/20/24 10:07:00 AM EST, [facility]/pharmacy #0950, 177, cm, 10/19/24 8:30:00 EST, Height, 101, kg, 10/19/24 8:30:00 EST, Dry Weight Start Date: 10/20/24 Status: Ordered Quantity: 90.0 Unit: tablet Repeat number: 2 omeprazole 40 mg oral enteric coated capsule 1 capsule, By Mouth, Every other day, # 45 capsule, 1 Refills, Maintenance, 12/06/24 6:35:00 PM EST,[facility], 177, cm, 10/19/24 8:30:00 EST, Height, 101, kg, 10/19/24 8:30:00 EST, Dry Weight Start Date: 12/06/24 Status: Ordered Quantity: 45.0 Unit: capsule Repeat number: 1 Problem List Condition Confirmation Course Effective Dates Status H ealth Status Informant Serous cystadenoma Confirmed Active Osteoarthritis [...] lower extremity (deep venous thrombosis) Confirmed Active Social History Social History Type Response Smoking Status Never (less than 100 in lifetime) entered on: 09/02/23 Sex Sex Representation Male (finding) Patient Care team information Care Team Personnel Name: Josr Medrano MD Position: [facility] Physician - Primary Care Member Role: PCP Address: [address] [place] [address] Adult & Pediatric Medicine [address] Telecom: Name: Keena Vo RN Position: S RN Member Role: Primary Care Nurse Name: Sherrie Green RN Position: S RN Member Role: Primary Care Nurse Care Team Related Persons Name: VERONICA KNIGHT Name: LUCIANO KNIGHT Insurance Providers Guarantor name: SHANE KNIGHT Health Plan Information #: 1 Payer: [facility] Member Number: NA Policy Number: NA Group Number: NA
--- OUTSIDE RECORDS SUMMARY | 2025-01-07 09:11 | XMS_ITS | Continuity of Care Document ---
Author Organization [facility] Address [address] [place] [address]- [facility] [phone] Care Team Providers Care Nurse Orthopaedic Name Role Phone Josr Medrano MD Primary Care Physician Encounter [facility] Date(s): 12/06/24 - 01/05/25 [facility] [address] [place], [place] [address] Encounter Type: Triage Allergies, Adverse Reactions, Alerts [...] vaccine, inactivated 5 09/06/10 Gi kobi SARS-CoV-2(COVID-19)mRNA-LNP vac([id number]) 08/21/24 Recorded SARS-CoV-2 mRNA (isonfoi-cnlh-kndxq) vax 09/21/23 Recorded SARS-CoV-2 mRNA (ayehkzj-xtbr-sdbuy) vax 10/27/22 Recorded Zoster Vaccine Live 6 12/31/22 Recorded Zoster Vaccine Live 10/27/22 Recorded SARS-CoV-2 (COVID-19) mRNA-1273 vaccine 10/13/21 R ecorded SARS-CoV-2 (COVID-19) mRNA-1273 vaccine 12/30/20 R ecorded SARS-CoV-2 (COVID-19) mRNA-1273 vaccine 12/02/20 R ecorded tetanus/diphtheria/pertussis, acel(Tdap) 06/25/13 Given tetanus-diphtheria toxoids (Td) 02/08/04 Given 1Result Comment: [id number] given w/out incident 2Result Comment: [id number] 3Result Comment: [id number] 4Result Comment: [08/15/2017] [facility] [id number] 5Admin Note: in [place] 6Result Comment: [facility] [...] 11 Refills, Maintenance, 01/17/24 10:36:00 AM EST, [facility], 177, cm, 10/15/23 10:00:00 EST, Height, 102, kg, 10/15/23 10:00:00 EST, Dry Weight Start Date: 01/17/24 Status: Ordered Quantity: 60.0 Unit: tablet Repeat number: 1 indapamide 2.5 mg oral tablet 1 tablet, By Mouth, Daily in AM, # 90 tablet, 3 Refills, Maintenance, 10/16/24 9:14:00 AM EST, [facility], 177, cm, 03/16/24 7:44:00 EDT, Height, 102, kg, 10/15/23 10:00:00 EST, Dry Weight Start Date: 10/16/24 Status: Ordered Quantity: 90.0 Unit: tablet Repeat number: 1 lisinopril 40 mg oral tablet 1 tablet, By Mouth, Daily, # 90 tablet, 1 Refills, Maintenance, 10/20/24 10:07:00 AM EST, [facility]/pharmacy #0950, 177, cm, 10/19/24 8:30:00 EST, Height, 101, kg, 10/19/24 8:30:00 EST, Dry Weight Start Date: 10/20/24 Status: Ordered Quantity: 90.0 Unit: tablet Repeat number: 2 omeprazole 40 mg oral enteric coated capsule 1 capsule, By Mouth, Every other day, # 45 capsule, 1 Refills, Maintenance, 12/06/24 6:35:00 PM EST,[facility] STORE 93752, 177, cm, 10/19/24 8:30:00 EST, Height, 101, [...] Team Personnel Name: Josr Medrano MD Position: [facility] Physician - Primary Care Member Role: PCP Address: [address] [place] [address] Adult & Pediatric Medicine [address] Telecom: Name: Keena Vo RN Position: S RN Member Role: Primary Care Nurse Name: Sherrie Green RN Position: S RN Member Role: Primary Care Nurse Care Team Related Persons Name: VERONICA KNIGHT Name: LUCIANO KNIGHT Insurance Providers Guarantor name: SHANE MONTANASDGus [facility] Plan Information #: 1 Payer: [facility] Member Number: NA Policy Number: NA Group Number: NA
--- OUTSIDE RECORDS SUMMARY | 2025-01-07 09:11 | XMS_ITS | Continuity of Care Document ---
Author Organization [facility] Address [address] [place] [address]- Care Team Providers Care Corrections Corporal Name Role Phone Josr Medrano MD Primary Care Physician Encounter [facility] Date(s): 11/25/24 - 12/25/24 [facility] [address] [place], [place] [address] Encounter Type: Triage Allergies, Adverse Reactions, Alerts [...] vaccine, inactivated 5 09/06/10 Gi kobi SARS-CoV-2(COVID-19)mRNA-LNP vac([id number]) 08/21/24 Recorded SARS-CoV-2 mRNA (nuwymvn-bsuc-fowfg) vax 09/21/23 Recorded SARS-CoV-2 mRNA (kgvacef-qiqw-hckqv) vax 10/27/22 Recorded Zoster Vaccine Live 6 12/31/22 Recorded Zoster Vaccine Live 10/27/22 Recorded SARS-CoV-2 (COVID-19) mRNA-1273 vaccine 10/13/21 R ecorded SARS-CoV-2 (COVID-19) mRNA-1273 vaccine 12/30/20 R ecorded SARS-CoV-2 (COVID-19) mRNA-1273 vaccine 12/02/20 R ecorded tetanus/diphtheria/pertussis, acel(Tdap) 06/25/13 Given tetanus-diphtheria toxoids (Td) 02/08/04 Given 1Result Comment: [id number] given w/out incident 2Result Comment: [id number] 3Result Comment: [id number] 4Result Comment: [08/15/2017] [facility] [place] [id number] 5Admin Note: in [place] 6Result Comment: [facility] [...] 11 Refills, Maintenance, 01/17/24 10:36:00 AM EST, [facility] 55[facility], 177, cm, 10/15/23 10:00:00 EST, Height, 102, kg, 10/15/23 10:00:00 EST, Dry Weight Start Date: 01/17/24 Status: Ordered Quantity: 60.0 Unit: tablet Repeat number: 1 indapamide 2.5 mg oral tablet 1 tablet, By Mouth, Daily in AM, # 90 tablet, 3 Refills, Maintenance, 10/16/24 9:14:00 AM EST, [facility] 78019, 177, cm, 03/16/24 7:44:00 EDT, Height, 102, kg, 10/15/23 10:00:00 EST, Dry Weight Start Date: 10/16/24 Status: Ordered Quantity: 90.0 Unit: tablet Repeat number: 1 lisinopril 40 mg oral tablet 1 tablet, By Mouth, Daily, # 90 tablet, 1 Refills, Maintenance, 10/20/24 10:07:00 AM EST, [facility]/pharmacy #0950, 177, cm, 10/19/24 8:30:00 EST, Height, 101, kg, 10/19/24 8:30:00 EST, Dry Weight Start Date: 10/20/24 Status: Ordered Quantity: 90.0 Unit: tablet Repeat number: 2 omeprazole 40 mg oral enteric coated capsule 1 capsule, By Mouth, Every other day, # 45 capsule, 1 Refills, Maintenance, 12/06/24 6:35:00 PM EST,[facility], 177, cm, 10/19/24 8:30:00 EST, Height, 101, [...] Team Personnel Name: Josr Medrano MD Position: [facility] Physician - Primary Care Member Role: PCP Address: [address] [place] [address] Adult & Pediatric [address] Telecom: Name: Keena Vo RN Position: S RN Member Role: Primary Care Nurse Name: Sherrie Green RN Position: S RN Member Role: Primary Care Nurse Care Team Related Persons Name: VERONICA KNIGHT Name: LUCIANO KNIGHT Insurance Providers Guarantor name: SHANE MONTANAORGus Health Plan Information #: 1 Payer: [facility] Member Number: NA Policy Number: NA Group Number: NA
--- OUTSIDE RECORDS SUMMARY | 2025-01-07 09:11 | XMS_ITS | Continuity of Care Document ---
Author Organization [facility] Address [address] [place] [address]- Care Team Providers Care Document Management Technician Name Role Phone Josr Medrano MD Primary Care Physician [place] [facility] [place]s): 11/19/24 - 12/19/24 [facility] [address] [place], [place] [address] Encounter Type: Triage Allergies, Adverse Reactions, [...] vaccine, inactivated 5 09/06/10 Gi kobi SARS-CoV-2(COVID-19)mRNA-LNP vac(syn061) 08/21/24 Recorded SARS-CoV-2 mRNA (mlgqkmy-ktns-rpoji) vax 09/21/23 Recorded SARS-CoV-2 mRNA (lylniel-izmk-cftvb) vax 10/27/22 Recorded Zoster Vaccine Live 6 12/31/22 Recorded Zoster Vaccine Live 10/27/22 Recorded SARS-CoV-2 (COVID-19) mRNA-1273 vaccine 10/13/21 R ecorded SARS-CoV-2 (COVID-19) mRNA-1273 vaccine 12/30/20 R ecorded SARS-CoV-2 (COVID-19) mRNA-1273 vaccine 12/02/20 R ecorded tetanus/diphtheria/pertussis, acel(Tdap) 06/25/13 Given tetanus-diphtheria toxoids (Td) 02/08/04 Given 1Result Comment: [id number] given w/out incident 2Result Comment: [id number] 3Result Comment: [id number] 4Result Comment: [08/15/2017] [facility] [id number] 5Admin Note: in [place] 6Result Comment: [facility] [...] 11 Refills, Maintenance, 01/17/24 10:36:00 AM EST, [facility] ST[facility] 46462, 177, cm, 10/15/23 10:00:00 EST, Height, 102, kg, 10/15/23 10:00:00 EST, Dry Weight Start Date: 01/17/24 Status: Ordered Quantity: 60.0 Unit: tablet Repeat number: 1 indapamide 2.5 mg oral tablet 1 tablet, By Mouth, Daily in AM, # 90 tablet, 3 Refills, Maintenance, 10/16/24 9:14:00 AM EST, [facility] STORE 94439, 177, cm, 03/16/24 7:44:00 EDT, Height, 102, kg, 10/15/23 10:00:00 EST, Dry Weight Start Date: 10/16/24 Status: Ordered Quantity: 90.0 Unit: tablet Repeat number: 1 lisinopril 40 mg oral tablet 1 tablet, By Mouth, Daily, # 90 tablet, 1 Refills, Maintenance, 10/20/24 10:07:00 AM EST, [facility]/pharmacy #0950, 177, cm, 10/19/24 8:30:00 EST, Height, 101, kg, 10/19/24 8:30:00 EST, Dry Weight Start Date: 10/20/24 Status: Ordered Quantity: 90.0 Unit: tablet Repeat number: 2 omeprazole 40 mg oral enteric coated capsule 1 capsule, By Mouth, Every other day, # 45 capsule, 1 Refills, Maintenance, 12/06/24 6:35:00 PM EST,[facility], 177, cm, 10/19/24 8:30:00 EST, Height, 101, [...] Personnel Name: Josr Medrano MD Position: [facility] Physician - Primary Care Member Role: PCP Address: [address] [place] [address] Adult & Pediatric Medicine [address] Telecom: Name: Keena Vo RN Position: S RN Member Role: Primary Care Nurse Name: Sherrie Green RN Position: S RN Member Role: Primary Care Nurse Care Team Related Persons Name: VERONICA KNIGHT Name: LUCIANO KNIGHT Insurance Providers Guarantor name: SHANE KNIGHT Health Plan Information #: 1 Payer: [facility] Member Number: NA Policy Number: NA Group Number: NA
--- OUTSIDE RECORDS SUMMARY | 2025-01-07 09:11 | XMS_ITS | Continuity of Care Document ---
Author Organization [facility] Address [address] [place] [address]- Care Team Providers Care Health Informatics Advisor Name Role Phone Josr Medrano MD Primary Care Physician [phone] [facility] Date(s): 11/17/24 - 12/17/24 [facility] [address] [place], [place] [address] Encounter Type: Triage Allergies, Adverse Reactions, [...] vaccine, inactivated 5 09/06/10 Gi kobi SARS-CoV-2(COVID-19)mRNA-LNP vac([id number]) 08/21/24 Recorded SARS-CoV-2 mRNA (dydfxko-plva-jkpdo) vax 09/21/23 Recorded SARS-CoV-2 mRNA (zsqibpf-fzdo-uhyxp) vax 10/27/22 Recorded Zoster Vaccine Live 6 12/31/22 Recorded Zoster Vaccine Live 10/27/22 Recorded SARS-CoV-2 (COVID-19) mRNA-1273 vaccine 10/13/21 R ecorded SARS-CoV-2 (COVID-19) mRNA-1273 vaccine 12/30/20 R ecorded SARS-CoV-2 (COVID-19) mRNA-1273 vaccine 12/02/20 R ecorded tetanus/diphtheria/pertussis, acel(Tdap) 06/25/13 Given tetanus-diphtheria toxoids (Td) 02/08/04 Given 1Result Comment: [id number] given w/out incident 2Result Comment: [id number] 3Result Comment: [id number] 4Result Comment: [08/15/2017] [facility] [id number] 5Admin Note: in [place] 6Result Comment: [facility] [...] 11 Refills, Maintenance, 01/17/24 10:36:00 AM EST, [facility] 04870, 177, cm, 10/15/23 10:00:00 EST, Height, 102, kg, 10/15/23 10:00:00 EST, Dry Weight Start Date: 01/17/24 Status: Ordered Quantity: 60.0 Unit: tablet Repeat number: 1 indapamide 2.5 mg oral tablet 1 tablet, By Mouth, Daily in AM, # 90 tablet, 3 Refills, Maintenance, 10/16/24 9:14:00 AM EST, [facility] 62234, 177, cm, 03/16/24 7:44:00 EDT, Height, 102, kg, 10/15/23 10:00:00 EST, Dry Weight Start Date: 10/16/24 Status: Ordered Quantity: 90.0 Unit: tablet Repeat number: 1 lisinopril 40 mg oral tablet 1 tablet, By Mouth, Daily, # 90 tablet, 1 Refills, Maintenance, 10/20/24 10:07:00 AM EST, [facility]/pharmacy #0950, 177, cm, 10/19/24 8:30:00 EST, Height, 101, kg, 10/19/24 8:30:00 EST, Dry Weight Start Date: 10/20/24 Status: Ordered Quantity: 90.0 Unit: tablet Repeat number: 2 omeprazole 40 mg oral enteric coated capsule 1 capsule, By Mouth, Every other day, # 45 capsule, 1 Refills, Maintenance, 12/06/24 6:35:00 PM EST,[facility], 177, cm, 10/19/24 8:30:00 EST, Height, 101, [...] Team Personnel Name: Josr Medrano MD Position: [facility] Physician - Primary Care Member Role: PCP Address: [address] [place] [address] Adult & Pediatric [address] Telecom: Name: Keena Vo RN Position: S RN Member Role: Primary Care Nurse Name: Sherrie Green RN Position: S RN Member Role: Primary Care Nurse Care Team Related Persons Name: VERONICA KNIGHT Name: LUCIANO KNIGHT Insurance Providers Guarantor name: SHANE MONTANAWYGus Health Plan Information #: 1 Payer: [facility] Member Number: NA Policy Number: NA Group Number: NA
--- OUTSIDE RECORDS SUMMARY | 2025-01-07 09:11 | XMS_ITS | Continuity of Care Document ---
Author Organization [facility] Address [address] [place] [address]- Care Team Providers Care Nursing Scheduler Name Role Phone Josr Medrano MD Primary Care Physician Encounter [facility] [place] Date(s): 11/25/24 - 12/25/24 [facility] [address] [place], [place] [address] Encounter Type: Triage Allergies, Adverse Reactions, [...] vaccine, inactivated 5 09/06/10 Gi kobi SARS-CoV-2(COVID-19)mRNA-LNP vac([id number]) 08/21/24 Recorded SARS-CoV-2 mRNA (sskyqjf-igew-kqxfy) vax 09/21/23 Recorded SARS-CoV-2 mRNA (pslvhad-trmh-rfvmv) vax 10/27/22 Recorded Zoster Vaccine Live 6 12/31/22 Recorded Zoster Vaccine Live 10/27/22 Recorded SARS-CoV-2 (COVID-19) mRNA-1273 vaccine 10/13/21 R ecorded SARS-CoV-2 (COVID-19) mRNA-1273 vaccine 12/30/20 R ecorded SARS-CoV-2 (COVID-19) mRNA-1273 vaccine 12/02/20 R ecorded tetanus/diphtheria/pertussis, acel(Tdap) 06/25/13 Given tetanus-diphtheria toxoids (Td) 02/08/04 Given 1Result Comment: [id number] given w/out incident 2Result Comment: [id number] 3Result Comment: [id number] 4Result Comment: [08/15/2017] [facility] [id number] 5Admin Note: in [place] 6Result Comment: [facility] [...] 11 Refills, Maintenance, 01/17/24 10:36:00 AM EST, [facility] STORE 08710, 177, cm, 10/15/23 10:00:00 EST, Height, 102, kg, 10/15/23 10:00:00 EST, Dry Weight Start Date: 01/17/24 Status: Ordered Quantity: 60.0 Unit: tablet Repeat number: 1 indapamide 2.5 mg oral tablet 1 tablet, By Mouth, Daily in AM, # 90 tablet, 3 Refills, Maintenance, 10/16/24 9:14:00 AM EST, [facility] STORE 48046, 177, cm, 03/16/24 7:44:00 EDT, Height, 102, kg, 10/15/23 10:00:00 EST, Dry Weight Start Date: 10/16/24 Status: Ordered Quantity: 90.0 Unit: tablet Repeat number: 1 lisinopril 40 mg oral tablet 1 tablet, By Mouth, Daily, # 90 tablet, 1 Refills, Maintenance, 10/20/24 10:07:00 AM EST, [facility]/pharmacy #0950, 177, cm, 10/19/24 8:30:00 EST, Height, 101, kg, 10/19/24 8:30:00 EST, Dry Weight Start Date: 10/20/24 Status: Ordered Quantity: 90.0 Unit: tablet Repeat number: 2 omeprazole 40 mg oral enteric coated capsule 1 capsule, By Mouth, Every other day, # 45 capsule, 1 Refills, Maintenance, 12/06/24 6:35:00 PM EST,[facility], 177, cm, 10/19/24 8:30:00 EST, Height, 101, [...] Team Personnel Name: Josr Medrano MD Position: [facility] Physician - Primary Care Member Role: PCP Address: [address] [place] [address] Adult & Pediatric Medicine [address] Telecom: Name: Keena Vo RN Position: S RN Member Role: Primary Care Nurse Name: Sherrie Green RN Position: S RN Member Role: Primary Care Nurse Care Team Related Persons Name: VERONICA KNIGHT Name: LUCIANO KNIGHT Insurance Providers Guarantor name: SHANE KNIGHT Health Plan Information #: 1 Payer: [facility] Member Number: NA Policy Number: NA Group Number: NA
--- OUTSIDE RECORDS SUMMARY | 2025-01-07 09:11 | XMS_ITS | Continuity of Care Document ---
Author Organization [facility] Address [address] [place] [address]- Care Team Providers Care Dinkey Brakeman Name Role Phone Josr Medrano MD Primary Care Physician [phone] Encounter [facility] [place] Date(s): 11/26/24 - 12/26/24 [facility] [address] [place], [place] [address] Encounter Type: Triage Allergies, Adverse [...] vaccine, inactivated 5 09/06/10 Gi kobi SARS-CoV-2(COVID-19)mRNA-LNP vac([id number]) 08/21/24 Recorded SARS-CoV-2 mRNA (sidhpcl-amag-lwwwg) vax 09/21/23 Recorded SARS-CoV-2 mRNA (fmemymx-czto-zvcpk) vax 10/27/22 Recorded Zoster Vaccine Live 6 12/31/22 Recorded Zoster Vaccine Live 10/27/22 Recorded SARS-CoV-2 (COVID-19) mRNA-1273 vaccine 10/13/21 R ecorded SARS-CoV-2 (COVID-19) mRNA-1273 vaccine 12/30/20 R ecorded SARS-CoV-2 (COVID-19) mRNA-1273 vaccine 12/02/20 R ecorded tetanus/diphtheria/pertussis, acel(Tdap) 06/25/13 Given tetanus-diphtheria toxoids (Td) 02/08/04 Given 1Result Comment: [id number] given w/out incident 2Result Comment: [id number] 3Result Comment: [id number] 4Result Comment: [08/15/2017] [facility] [id number] 5Admin Note: in [place] 6Result Comment: [facility] [...] 11 Refills, Maintenance, 01/17/24 10:36:00 AM EST, [facility], 177, cm, 10/15/23 10:00:00 EST, Height, 102, kg, 10/15/23 10:00:00 EST, Dry Weight Start Date: 01/17/24 Status: Ordered Quantity: 60.0 Unit: tablet Repeat number: 1 indapamide 2.5 mg oral tablet 1 tablet, By Mouth, Daily in AM, # 90 tablet, 3 Refills, Maintenance, 10/16/24 9:14:00 AM EST, [facility] 71095, 177, cm, 03/16/24 7:44:00 EDT, Height, 102, kg, 10/15/23 10:00:00 EST, Dry Weight Start Date: 10/16/24 Status: Ordered Quantity: 90.0 Unit: tablet Repeat number: 1 lisinopril 40 mg oral tablet 1 tablet, By Mouth, Daily, # 90 tablet, 1 Refills, Maintenance, 10/20/24 10:07:00 AM EST, [facility]/pharmacy #0950, 177, cm, 10/19/24 8:30:00 EST, Height, 101, kg, 10/19/24 8:30:00 EST, Dry Weight Start Date: 10/20/24 Status: Ordered Quantity: 90.0 Unit: tablet Repeat number: 2 omeprazole 40 mg oral enteric coated capsule 1 capsule, By Mouth, Every other day, # 45 capsule, 1 Refills, Maintenance, 12/06/24 6:35:00 PM EST,[facility], 177, cm, 10/19/24 8:30:00 EST, Height, 101, [...] Team Personnel Name: Josr Medrano MD [facility] Phys[facility] - Primary Care Member Role: PCP Address: [address] [place] [address] Adult & Pediatric [address] Telecom: Name: Keena Vo RN Position: S RN Member Role: Primary Care Nurse Name: Sherrie Green RN Position: S RN Member Role: Primary Care Nurse Care Team Related Persons Name: VERONICA KNIGHT Name: LUCIANO KNIGHT Insurance Providers Guarantor name: SHANE [employer] [employer] Plan Information #: 1 Payer: [facility] Member Number: NA Policy Number: NA Group Number: NA
--- OUTSIDE RECORDS SUMMARY | 2025-01-07 09:11 | XMS_ITS | Continuity of Care Document ---
Author Organization [facility] Address [address] [place] [address]- Care Team Providers Care In Process Inspector Name Role Phone Josr Medrano MD Primary Care Physician [phone] [place] [facility] [place] 11/27/24 - 12/27/24 [facility] [address] [place], [place] [address] Encounter Type: Triage Allergies, Adverse Reactions, [...] vaccine, inactivated 5 09/06/10 Gi kobi SARS-CoV-2(COVID-19)mRNA-LNP vac([id number]) 08/21/24 Recorded SARS-CoV-2 mRNA (izevsdk-mwim-ptadn) vax 09/21/23 Recorded SARS-CoV-2 mRNA (qguqrek-hwtx-yjhtx) vax 10/27/22 Recorded Zoster Vaccine Live 6 12/31/22 Recorded Zoster Vaccine Live 10/27/22 Recorded SARS-CoV-2 (COVID-19) mRNA-1273 vaccine 10/13/21 R ecorded SARS-CoV-2 (COVID-19) mRNA-1273 vaccine 12/30/20 R ecorded SARS-CoV-2 (COVID-19) mRNA-1273 vaccine 12/02/20 R ecorded tetanus/diphtheria/pertussis, acel(Tdap) 06/25/13 Given tetanus-diphtheria toxoids (Td) 02/08/04 Given 1Result Comment: [id number] given w/out incident 2Result Comment: [id number] 3Result Comment: [id number] 4Result Comment: [08/15/2017] [facility] [id number] 5Admin Note: in [place] 6Result Comment: [facility] [...] 11 Refills, Maintenance, 01/17/24 10:36:00 AM EST, [facility] 42072, 177, cm, 10/15/23 10:00:00 EST, Height, 102, kg, 10/15/23 10:00:00 EST, Dry Weight Start Date: 01/17/24 Status: Ordered Quantity: 60.0 Unit: tablet Repeat number: 1 indapamide 2.5 mg oral tablet 1 tablet, By Mouth, Daily in AM, # 90 tablet, 3 Refills, Maintenance, 10/16/24 9:14:00 AM EST, [facility]66, 177, cm, 03/16/24 7:44:00 EDT, Height, 102, kg, 10/15/23 10:00:00 EST, Dry Weight Start Date: 10/16/24 Status: Ordered Quantity: 90.0 Unit: tablet Repeat number: 1 lisinopril 40 mg oral tablet 1 tablet, By Mouth, Daily, # 90 tablet, 1 Refills, Maintenance, 10/20/24 10:07:00 AM EST, [facility]/pharmacy #0950, 177, cm, 10/19/24 8:30:00 EST, Height, 101, kg, 10/19/24 8:30:00 EST, Dry Weight Start Date: 10/20/24 Status: Ordered Quantity: 90.0 Unit: tablet Repeat number: 2 omeprazole 40 mg oral enteric coated capsule 1 capsule, By Mouth, Every other day, # 45 capsule, 1 Refills, Maintenance, 12/06/24 6:35:00 PM EST[facility], 177, cm, 10/19/24 8:30:00 EST, Height, 101, [...] Team Personnel Name: Josr Medrano MD Position: [facility] Physician - Primary Care Member Role: PCP Address: [address] [place] [address] Adult & Pediatric Medicine [address] Telecom: Name: Keena oV RN Position: S RN Member Role: Primary Care Nurse Name: Sherrie Green RN Position: S RN Member Role: Primary Care Nurse Care Team Related Persons Name: VERONICA KNIGHT Name: LUCIANO KNIGHT Insurance Providers Guarantor name: SHANE KNIGHT Health Plan Information #: 1 Payer: [facility] Member Number: NA Policy Number: NA Group Number: NA
== END 2025-01-07 09:23 | disposition home or self-care (01) ==
PROVIDERS: PCP Internal Medicine; Visit Provider Surgery Vascular Surgery
DX: I83.11 Varicose veins of right lower extremity with inflammation (principal)
CPT/HCPCS: 99214

== ENCOUNTER 2025-04-08 08:38 | Outpatient (AMB) | payer OTHER, SELFPAY ==
--- OUTSIDE RECORDS SUMMARY | 2025-04-08 08:49 | XMS_ITS | Continuity of Care Document ---
Author Organization [facility] Address [address] [address]- Care Team Providers Care Instrument Maintenance Supervisor Name Role Phone Josr Medrano MD Primary Care Physician [phone] [id number] Date(s): 03/30/25 - 04/06/25 [facility] [address] [place] [place] [address] Encounter Diagnosis Abdominal discomfort(Discharge Diagnosis) - 03/30/25 Esophagitis(Discharge Diagnosis) - 03/30/25 Intraductal papillary mucinous adenoma of pancreas(Discharge Diagnosis) - 03/30/25 Attending Physician: Smitha De Leon MD Encounter Type: Office Visit Allergies, Adverse [...] vaccine, inactivated 5 09/06/10 Gi kobi SARS-CoV-2(COVID-19)mRNA-LNP vac([id number]) 08/21/24 Recorded SARS-CoV-2 mRNA (xcrapax-iccb-zxhmx) vax 09/21/23 Recorded SARS-CoV-2 mRNA (citvfat-ioql-hozxi) vax 10/27/22 Recorded Zoster Vaccine Live 6 12/31/22 Recorded Zoster Vaccine Live 10/27/22 Recorded SARS-CoV-2 (COVID-19) mRNA-1273 vaccine 10/13/21 R ecorded SARS-CoV-2 (COVID-19) mRNA-1273 vaccine 12/30/20 R ecorded SARS-CoV-2 (COVID-19) mRNA-1273 vaccine 12/02/20 R ecorded tetanus/diphtheria/pertussis, acel(Tdap) 06/25/13 Given tetanus-diphtheria toxoids (Td) 02/08/04 Given 1Result Comment: [id number] given w/out incident 2Result Comment: [id number] 3Result Comment: [id number] 4Result Comment: [08/15/2017] [facility] [id number] 5Admin Note: in [place] 6Result Comment: [facility] [...] Maintenance, 01/17/24 10:36:00 AM EST, [facility], 177, cm, 10/15/23 10:00:00 EST, Height, 102, kg, 10/15/23 10:00:00 EST, Dry Weight Start Date: 01/17/24 Status: Ordered Quantity: 60.0 Unit: tablet Repeat number: 1 indapamide 2.5 mg oral tablet 1 tablet, By Mouth, Daily in AM, # 90 tablet, 3 Refills, Maintenance, 10/16/24 9:14:00 AM EST, [facility] 57192, 177, cm, 03/16/24 7:44:00 EDT, Height, 102, kg, 10/15/23 10:00:00 EST, Dry Weight Start Date: 10/16/24 Status: Ordered Quantity: 90.0 Unit: tablet Repeat number: 1 lisinopril 40 mg oral tablet 1 tablet, By Mouth, Daily, # 90 tablet, 1 Refills, Maintenance, 10/20/24 10:07:00 AM EST, [facility]/pharmacy #0950, 177, cm, 10/19/24 8:30:00 EST, Height, 101, kg, 10/19/24 8:30:00 EST, Dry Weight Start Date: 10/20/24 Status: Ordered Quantity: 90.0 Unit: tablet Repeat number: 2 omeprazole 40 mg oral enteric coated capsule 1 capsule, By Mouth, Every other day, # 45 capsule, 1 Refills, Maintenance, 12/06/24 6:35:00 PM EST,[facility] 83833, 177, cm, 10/19/24 8:30:00 EST, Height, 101, [...] Effective Dates Health Status Clinical Service Informant Abdominal discomfort Discharge Diagnosis 03/30/25 Esophagitis Discharge Diagnosis 03/30/25 Intraductal papillary mucinous adenoma of pancreas Discharge Diagnosis 03/30/25 Vital Signs Most recent to oldest [Reference Range]: 1 Height 177 cm (03/30/25 8:47 AM) Weight 100.2 kg (03/30/25 8:47 AM) Oxygen Saturation [94-100 %] 97 % (03/30/25 8:47 AM) Pulse Rate [55-90 bpm] 61 bpm (03/30/25 8:47 AM) Body Mass Index [18.5-24.99 kg/m2] 31.98 kg/m2 *>HHI* (03/30/25 8:47 AM) Blood Pressure [90-138/55-84 mm Hg] 114/ 76mm Hg (03/30/25 8:47 AM) Temperature [96.8-100.4 DegF] 97.9 DegF (03/30/25 8:47 AM) Blood pressure sites Arm, left (03/30/25 8:47 AM) Temperature Route Temporal (03/30/25 8:47 AM) Weight Obtained Via Standing scale (03/30/25 8:47 AM) Social History Social History Type Response Smoking Status Never (less than 100 in lifetime) entered on: 09/02/23 Sex Sex Representation Male (finding) Note * Ny Tang: PERFORM Event Display: Patient Education/Instruction Authored Date: [id number] Ambulatory Adult Visit Summary [facility] [address] [place] [address] Name: SHANE KNIGHT : 1965?? Visit: 03/30/2025 08:32?? Ambulatory Visit Instructions ?? Your Care Team Primary Care Provider Josr Medrano MD? This Visit Provider Smitha De Leon MD Your Diagnosis Abdominal discomfort Esophagitis Intraductal papillary mucinous adenoma of pancreas Vitals Signs Temperature: 97.9 DegF Height: 177 cm Pulse Rate: 61 bpm Weight: 100.2 kg Systolic Blood Pressure: 114 mm Hg Body Mass Index:??31.98 kg/m2??Critical Diastolic Blood Pressure: 76 mm Hg Body surface area: 2.22 Oxygen Saturation: 97 % ?? What to do next Instructions From Your Provider ??Avoid Alcohol Take Prilosec daily for 4 weeks--> can resume alt days Follow up with GI Scheduled Follow-Up Appointments Saturday 8:00 AM EDT ?? With: Josr Medrano MD Where: [facility] [address] [place] [address]- Status: Pending Future Orders CBC w/ Differential - Routine, Once, 11/13/24 17:03:00 EST, Future Order, [facility], Blood?? Iron + Iron Binding Capacity - Routine, Once, 11/13/24 17:03:00 EST, Future Order, [facility], Blood?? Ferritin - Routine, Once, 11/13/24 17:03:00 EST, Future Order, [facility], Blood?? Vitamin B12 Level (B12 Vitamin Level) - Routine, Once, 11/13/24 17:03:00 EST, Future Order, [facility], Blood?? Medications The [...] capsule) 1 capsule Oral Every other day Medications and Immunizations Administered Medications Given During [...] are strongly encouraged to quit. Please call [employer] at [phone] or [phone] ([phone]) or log in to [email or web address] for referrals to smoking cessation programs. ?? The National Suicide Prevention Hotline is available 10/06 if you or someone you know needs to find a reason to keep living. By calling 8-355-899-[employer] (1087) you'll be connected to a skilled, trained counselor at a crisis center in your area. [facility] You can view and manage your care through the patient portal or by using a health care lenka of your choosing. [employer] is a website that allows you to securely view your medical information including your hospital discharge summary, office visit summaries, medications and follow-up visits. You can also request appointments, renew medications, and request access to your medical information using a health care lenka of your choosing, or just ask a question. You can enroll at [email or web address] or register during your next office visit. [facility], in keeping with [facility] guidance, no longer requires face masks for [...] primary care provider, you may find a [facility] provider by calling [facility] at [phone]. Patient Care team information Care Team Personnel Name: Josr Medrano MD Position: [facility] Physician - Primary Care Member Role: PCP Address: [address] [place] [address] Adult & Pediatric Medicine [address] Telecom: Name: Keena Vo RN Position: [facility] RN Member Role: Primary Care Nurse Name: Sherrie Green RN Position: [facility] RN Member Role: Primary Care Nurse Care Team Related Persons Name: VERONICA KNIGHT Name: LUCIANO KNIGHT Insurance Providers Guarantor name: SHANE KNIGHT Health Plan Information #: 1 Payer: [facility] Member Number: [id number] Policy Number: NA Group Number: [id number] Health Plan Information #: 2 Payer: [facility] Member Number: [id number] Policy Number: NA Group Number: NA
[2025-04-08 08:57] VITALS: BMI 30.8
--- NOTE | 2025-04-08 08:57 | MHC.OFFVIS ---
Vital Signs 04/08/25 08:57 Height 5 ft 10 in Weight 215 lb BMI 30.8 Intake Visit Reasons: 3m L leg check Intake Note: 3 mo leg check s/p Right GSV Venaseal 12/25/24. Pt states Right LE swelling has not decreased very much and still c/o Right LE swelling. Pt states that Left LE does not bother him. Pyrotechnic Assembler Required: No Accompanied by: Self / Same As Patient Allergies No Known Allergies Allergy (Verified 04/08/25 09:00) HPI HPI 3m L leg check: Details: The patient is a 59-year-old male presenting with a follow-up for venous insufficiency. He had treatment in December for the right leg, and initially saw some improvement.. The swelling does not bother him, and he manages by wearing compression socks. The reflux persists in deeper veins of the right leg, but it is not advisable to treat these through surgical means. There is no significant concern for the left leg presently, except mild issues related to the knee, which seem unrelated to venous problems. He does not experience any major discomfort except knee-related nuances occasionally. He now presents for three-month vein check with us. [facility] Medical History DVT (deep venous thrombosis) Venous insufficiency Right knee pain Hypertension Surgical History History of total knee arthroplasty (~2021) Review of Systems Const All systems reviewed & are unremarkable except as noted in HPI and below Reports no additional complaints ENT Reports Normal hearing present Card Denies chest pain, Denies chest pain at rest, Denies chest pain with activity and Denies pedal edema Resp Denies cough GI Denies abdominal pain Musc Denies abnormal gait, Denies muscle cramps and Denies radiating pain into limb Skin/Breast Denies skin ulcer and Denies wounds Neuro Reports Normal hearing present and Denies abnormal gait Psych Reports no additional complaints Physical Exam Vital Signs: BMI result Body Mass Index 30.8 Const General: cooperative, healthy appearing and comfortable Orientation/consciousness: oriented to person, oriented to place and oriented to time HEENT Head: Yes normal to inspection Neck Neck: Yes normal visual inspection Carotids: no bruits Chest Chest palpation & inspection: normal inspection of the chest Resp Effort & Inspection: normal respiratory effort and able to speak in complete sentences Auscultation: clear to auscultation bilaterally, no crackles, no rales, no rhonchi and no wheezes Cardio Rate: regular rate Rhythm: regular rhythm Heart sounds: S1 normal heart sound present and S2 normal heart sound present Bruits: no carotid bruits Peripheral pulses: Peripheral pulses 2+ throughout GI Inspection: Yes normal to inspection Skin Wounds: no wounds Hair: normal Neuro General: oriented to person, oriented to place and oriented to time Cranial nerves: Yes CN's II-XII intact bilaterally and Yes Normal hearing present Cognition (Neuro): normal cognition Motor exam (neuro): 5/5 motor strength present throughout Extrem Other: venous exam: +1 edema General: No clubbing, No cyanosis and Yes edema Psych Appearance: grossly normal Mental Status: mental status grossly normal Speech and movement: Normal speech and movement present Results Reviewed Results Reviewed: Brief summary of venous insufficiency testing is as follows: right great saphenous vein: Ablated right small saphenous vein: negative right accessory vein: none present left great saphenous vein: Positive left small saphenous vein: negative left accessory vein: none present Please note there is no evidence of any venous aneurysms or significant tortuosity Assessment & Plan Assessment & Plan (1) Varicose veins of right lower extremity with inflammation: Comment: 12/25/2024 - right great saphenous vein Cyanoacralate ablation Code(s): I83.11 - Varicose veins of right lower extremity with inflammation Category: Medical Plan: During today's visit, I discussed with the patient the current state of his venous insufficiency and treatment options. I explained that compression stockings remain the primary management strategy given the intractability of deep venous system reflux surgically. We outlined potential future interventions, such as specialty pumps, if the condition worsens. I advised the patient to observe symptoms like worsening swelling, heaviness, skin changes, or ulceration, all of which would require medical assessment. I provided a sheet detailing compression stocking uses, measurements, and purchase options. Follow-up is open-ended, and the patient has been informed to reach out if symptoms escalate or concerning signs appear. Plan Patient was informed and verbally consented to the use of an ambient scribe for clinic note documentation during this visit. Patient Instructions: - Wear compression stockings regularly and as frequently as tolerable. - Monitor legs for swelling, visible veins, heaviness, itchiness, and skin changes. - Contact us if significant worsening occurs. - Refer to the provided sheet for compression stocking guidance and acquisition. Coding Level of Care Code Est Pt Level 4 (63685) Diagnoses Varicose veins of right lower extremity with inflammation I83.11
== END 2025-04-08 09:38 | disposition home or self-care (01) ==
LOC: HO.HVS 08:39
PROVIDERS: PCP Internal Medicine; Visit Provider Surgery Vascular Surgery
DX: I83.11 Varicose veins of right lower extremity with inflammation (principal)
CPT/HCPCS: 99214